=== PATIENT | female | born 1990 | race Caucasian/White ===

== ENCOUNTER 2017-09-05 00:23 | Emergency (ER) | payer OTHER ==
[~2017-09-05] VITALS: Ht 180.3 cm; Wt 65.0 kg
[2017-09-05 00:25] VITALS: BP 121/72; PULSE 95; RESP 16; TEMP 97.7; O2SAT 98
[2017-09-05] MEDS ORDERED: ORPHENADRINE INJ 60 MG/2 ML AMP IM ONE (01:30)
[2017-09-05] MEDS ORDERED: KETOROLAC TROMETHAMINE 60 MG/2 ML (IM) VIAL IM ONE (01:30)
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
[2017-09-05] MEDS ORDERED: IBUP800T23 PO (03:12)
[2017-09-05] MEDS ORDERED: CYCL1TAB29 PO (03:12)
== END 2017-09-05 03:39 | disposition home or self-care (01) ==
LOC: NEPD 00:23
DX: M62.838 Other muscle spasm (principal); S29.012A Strain of muscle and tendon of back wall of thorax, initial encounter; F17.210 Nicotine dependence, cigarettes, uncomplicated; X58.XXXA Exposure to other specified factors, initial encounter; Z59.0 Homelessness; Z88.0 Allergy status to penicillin
CPT/HCPCS: 96372; 99284; J1885; J2360